=== PATIENT | female | born 1970 | race Caucasian/White ===

== ENCOUNTER 2017-07-21 20:17 | Emergency (ER) | payer OTHER ==
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
[2017-07-21] MEDS ORDERED: LAMICTAL XR200 MG PO (20:32)
== END 2017-07-21 23:00 | disposition home or self-care (01) ==
LOC: SED 20:17
DX: S00.03XA Contusion of scalp, initial encounter (principal); Y08.89XA Assault by other specified means, initial encounter; Y07.01 Husband, perpetrator of maltreatment and neglect; Y92.009 Unspecified place in unspecified non-institutional (private) residence as the place of occurrence of the external cause
CPT/HCPCS: 70450; 72125; 99284